=== PATIENT | male | born 1935 | race Caucasian/White ===

== ENCOUNTER → 2017-06-27 | Outpatient (CLI) | payer OTHER ==
[~2017-06-27] MED LIST: AMLODIPINE BESYL5 MG PO; CARVEDILOL12.5 MG PO; CRESTOR20 MG PO; FLOMAX0.4 MG PO; LISINOPRIL20 MG PO; LO-DOSE ASPIRIN81 M1 PO; PERCOCET 5/31 TABLET PO; ZETIA10 MG PO
== END | disposition home or self-care (01) ==
LOC: NUC 10:06
DX: G93.89 Other specified disorders of brain (principal); M47.892 Other spondylosis, cervical region; R93.7 Abnormal findings on diagnostic imaging of other parts of musculoskeletal system; R97.21 Rising PSA following treatment for malignant neoplasm of prostate; Z92.3 Personal history of irradiation
CPT/HCPCS: 78306; A9503

== ENCOUNTER 2017-12-14 16:24 | Emergency (ER) | payer OTHER ==
[~2017-12-14] VITALS: Ht 180.3 cm; Wt 87.5 kg
[2017-12-14 17:11] LABS: HEMATOCRIT 42.7 % (38.0-50.0); HEMOGLOBIN 14.9 G/DL (12.5-16.6); MCH 30.4 PG (29.0-34.0); MCHC 34.9 G/DL (30.0-36.0); MCV 87.1 FL (86-99); PLATELET COUNT 197 K/uL (156-360); RBC DIS.WIDTH-CV 12.5 % (11.8-14.6); RBC DIS.WIDTH-SD 39.8 % (39-53); WHITE BLOOD COUNT 11.5 K/uL (4.1-10.2)
[2017-12-14 17:11] LABS: APPEARANCE CLEAR ((CLEAR)); BILIRUBIN NEGATIVE; BLOOD SMALL; COLOR YELLOW ((YELLOW)); GLUCOSE (STRIP) NEGATIVE; KETONES 20; LEUKOCYTES NEGATIVE; NITRITE NEGATIVE; PROTEIN (STRIP) 100; SPECIFIC GRAVITY 1.021 (1.000-1.030); UROBILINOGEN 0.2 MG/DL (0.2-1.0)
[2017-12-14 17:18] LABS: ALBUMIN 4.9 g/dL (3.2-4.8)
[2017-12-14 17:19] LABS: BACTERIA NONE SEEN /HPF; EPITHELIAL CELLS NONE SEEN /HPF; HYALINE CASTS 0-5 /LPF; MUCUS 3+ /LPF; UCUL ADDED? NO; WHITE BLOOD CELLS 0-5 /HPF (0-5)
[2017-12-14 17:19] LABS: CHLORIDE 105 mEq/L (99-109); POTASSIUM 4.2 mEq/L (3.7-5.4); SODIUM 139 mEq/L (136-147)
[2017-12-14 17:21] LABS: GLUCOSE 152 mg/dL (70-99); TOTAL PROTEIN 7.7 g/dL (6.4-8.3)
[2017-12-14 17:23] LABS: TOTAL BILIRUBIN 1.3 mg/dL (0.0-1.0)
[2017-12-14 17:24] LABS: ALKALINE PHOSPHATASE 67 IU/L (3-129)
[2017-12-14 17:25] LABS: CREATININE 1.2 mg/dL (0.6-1.3); GFR ESTIMATE (CALCULATED) > 59 mL/min/ (58.99-99999)
[2017-12-14 17:26] LABS: AST (GOT) 27 IU/L (2-34); UREA NITROGEN (BUN) 20 mg/dL (9-23)
[2017-12-14 17:28] LABS: ALT (GPT) 26 IU/L (3-49)
[2017-12-14 18:21] LABS: LIPASE 8 U/L (1.0-51.0)
[2017-12-14] MEDS ORDERED: PERCOCET 5/31 TABLET PO (18:49)
[2017-12-14] MEDS ORDERED: FLOMAX0.4 MG PO (18:49)
[2017-12-14] MEDS ORDERED: ZOFRAN4 MG PO (18:49)
[2017-12-14 18:57] VITALS: BP 138/80
== END 2017-12-14 18:58 | disposition home or self-care (01) ==
LOC: RME 16:24 → EME 16:24 → RME 18:58
PROVIDERS: Physician Assistant
DX: N20.0 Calculus of kidney (principal); I70.1 Atherosclerosis of renal artery; M47.9 Spondylosis, unspecified; I10 Essential (primary) hypertension; Z79.82 Long term (current) use of aspirin; Z87.442 Personal history of urinary calculi; Z95.1 Presence of aortocoronary bypass graft; Z85.46 Personal history of malignant neoplasm of prostate; Z86.79 Personal history of other diseases of the circulatory system; Z86.011 Personal history of benign neoplasm of the brain
CPT/HCPCS: 74176; 80053; 81003; 83690; 85027; 99281; 99285